=== PATIENT | male | born 1990 | race African-American/Black ===

== ENCOUNTER 2020-09-10 01:12 | Emergency (ER) | payer SELFPAY ==
[~2020-09-10] VITALS: Ht 195.6 cm; Wt 116.1 kg
--- NOTE | 2020-09-10 01:43 | NUR ---
PATIENT CAME TO THE ER BED 2 BIBSELF C/O SHARP HEADACHE AND SHORTNESS OF BREATH FOR 2x DAYS. PATIENT HAS DRY COUGH THAT STARTED TODAY. PATIENT STATES THE SHARP HEADACHE RADIATES FROM BILATERAL TEMPLES TO THE BACK OF THE EYES. PATIENT IS AAOX.4 NO SOB. BREATHING EVENLY AND UNLABORED ON ROOM AIR. AT 98%. PATIENT IS CONNECTED TO THE MONITOR.
[2020-09-10] MEDS: LEVETIRACETAM (500MG) 500 MG in IV NS 0.9% 100 ML IV ONE (02:00)
[2020-09-10] MEDS ORDERED: oxyCODONE/APAP (5/325 MG) 1 UDTAB TABLET ONE (02:06)
[2020-09-10] MEDS ORDERED: LEVETIRACETAM (500MG) 500 MG/5 ML VIAL IV ONE (02:06)
[2020-09-10 02:22] LABS: BASOPHILS % (AUTO) 0.2 % (0.0-2.0); EOSINOPHILS % (AUTO) 2.7 % (0.0-6.0); HEMATOCRIT 44 % (39-51); HEMOGLOBIN 15.2 g/dL (13.5-17.5); LYMPHOCYTES # (AUTO) 3.5 /CMM (0.8-4.8); LYMPHOCYTES % (AUTO) 37.6 % (20.0-44.0); MEAN CORPUSCULAR HGB CONC 34 g/dl (31.0-36.0); MEAN CORPUSCULAR VOLUME 93 fL (80-96); MONOCYTES # (AUTO) 0.6 /CMM (0.1-1.30); MONOCYTES % (AUTO) 6.4 % (2.0-12.0); NEUTROPHILS % (AUTO) 53.1 % (43.0-81.0); PLATELET COUNT (AUTO) 244 /CMM (150-450); RED BLOOD CELL COUNT(AUTO) 4.75 MIL/uL (4.5-6.0); WHITE BLOOD COUNT (AUTO) 9.4 K/uL (4.3-11.0)
[2020-09-10] MEDS: oxyCODONE/APAP (5/325 MG) 1 UDTAB TABLET PO ONE (02:22)
--- NOTE | 2020-09-10 02:22 | NUR ---
SENT TO CT VIA [facility]
[2020-09-10 02:41] LABS: CALCIUM, SERUM 9.3 mg/dL (8.5-10.1); CARBON DIOXIDE 30 mmol/L (21-32); CHLORIDE 105 mmol/L (98-107); CREATININE 1.1 mg/dL (0.6-1.3); GLUCOSE 100 mg/dL (74-106); POTASSIUM 3.8 mmol/L (3.5-5.1); SODIUM SERUM 143 mmol/L (136-145); UREA NITROGEN, BLOOD 18 mg/dL (7-18)
[2020-09-10 02:48] LABS: ALANINE AMINOTRANSFERASE 37 U/L (12-78); ALBUMIN 3.8 g/dL (3.4-5.0); ALCOHOL, BLOOD < 3 mg/dL (0-0); ALKALINE PHOSPHATASE 90 U/L (46-116); ASPARTATE AMINOTRANSFERASE 24 U/L (15-37); BILIRUBIN,DIRECT 0.1 mg/dL (0.0-0.2); BILIRUBIN,TOTAL 0.7 mg/dL (0.2-1.0); TOTAL PROTEIN, SERUM 7.4 g/dL (6.4-8.2)
[2020-09-10] MEDS ORDERED: OXYC-128 PO (03:30)
[2020-09-10] MEDS ORDERED: LEVE500T9 PO (03:31)
[2020-09-10 03:57] VITALS: BP 128/79
--- NOTE | 2020-09-10 03:57 | NUR ---
IV removed. Catheter intact and site benign. Pressure and 4x4 applied to site. No bleeding noted.
--- NOTE | 2020-09-10 03:57 | NUR ---
Patient discharged to home in stable condition. Written and verbal after care instructions given. Patient verbalizes understanding of instruction.
== END 2020-09-10 03:57 | disposition home or self-care (01) ==
LOC: ER 01:14
DX: R51.9 Headache, unspecified (principal); R56.9 Unspecified convulsions; E11.9 Type 2 diabetes mellitus without complications; R94.31 Abnormal electrocardiogram [ECG] [EKG]; Z87.820 Personal history of traumatic brain injury; Z20.822 Contact with and (suspected) exposure to COVID-19
CPT/HCPCS: 36415; 70450; 72125; 80048; 80076; 80307; 80320; 85025; 85730; 87426; 87804; 93005; 96365; 99285; C9803; J1953; J7030; G0480